=== PATIENT | female | born 2000 | race African-American/Black ===

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

== ENCOUNTER 2018-07-06 16:01 | Emergency (ER) | payer SELFPAY ==
[~2018-07-06] VITALS: Ht 170.2 cm; Wt 61.2 kg
[~2018-07-06 16:01] MED LIST: DIPH25CA58 PO; PRED50TA PO; SULF1TAB24 PO
[2018-07-06 16:30] VITALS: BP 133/67
[2018-07-06 16:54] LABS: BILIRUBIN,URINE NEGATIVE (NEG); CLARITY,URINE CLOUDY; COLOR,URINE YELLOW; NITRITE,URINE POSITIVE (NEG); PH,URINE 8.5; PROTEIN,URINE 30 mg/dL (NEG-TRACE)
[2018-07-06 17:00] LABS: BACTERIA,URINE MANY /HPF (0-FEW); SQUAMOUS EPITHELIAL CELL,UR MOD /LPF; WBC,URINE 20-40 /HPF (0-4)
[2018-07-06] MEDS ORDERED: CEPH500T PO (17:28)
--- NOTE | 2018-07-06 17:28 | PHYS DOC ---
Past Medical History Past Medical History: No Pertinent History Past Surgical History: No Surgical History Alcohol Use: None Drug Use: None Adult General Chief Complaint Chief Complaint: TEST [facility] HPI Patient is a 17 year old female with no significant medical history who presents to the ED today requesting a confirmation, patient states her last menstrual cycle was May 30, 2018. Patient denies any other symptoms. She states she did a test at home which was positive. Review of Systems Review of Systems Constitutional: Denies fever or chills [] Eyes: Denies change in visual acuity, redness, or eye pain [] HENT: Denies nasal congestion or sore throat [] Respiratory: Denies cough or shortness of breath [] Cardiovascular: No additional information not addressed in HPI [] GI: Request for test. Denies abdominal pain, nausea, vomiting, bloody stools or diarrhea [] : Denies dysuria or hematuria [] Musculoskeletal: Denies back pain or joint pain [] Integument: Denies rash or skin lesions [] Neurologic: Denies headache, focal weakness or sensory changes [] All other systems were reviewed and found to be within normal limits, except as documented in this note. Allergies Allergies Allergies Coded Allergies Type Severity Reaction Last Updated Verified No Known Drug Allergies 07/06/18 No Physical Exam Physical Exam Constitutional: Well developed, well nourished, no acute distress, non-toxic appearance. [] HENT: Normocephalic, atraumatic, bilateral external ears normal, oropharynx moist, no oral exudates, nose normal. [] Eyes: PERRLA, EOMI, conjunctiva normal, no discharge. [] Neck: Normal range of motion, no tenderness, supple, no stridor. [] Cardiovascular:Heart rate regular rhythm, no murmur [] Lungs & Thorax: Bilateral breath sounds clear to auscultation [] Abdomen: Bowel sounds normal, soft, no tenderness, no masses, no pulsatile masses. [] Skin: Warm, dry, no erythema, no rash. [] Back: No tenderness, no CVA tenderness. [] Extremities: No tenderness, no cyanosis, no clubbing, ROM intact, no edema. [] Neurologic: Alert and oriented X 3, normal motor function, normal sensory function, no focal deficits noted. [] Psychologic: Affect normal, judgement normal, mood normal. [] Current Patient Data Vital Signs Vital Signs Date Time Temp Pulse Resp B/P (MAP) Pulse Ox O2 Delivery O2 Flow Rate FiO2 07/06/18 16:30 97.7 90 16 133/67 (89) 97 Room Air 97.7 Lab Values Laboratory Tests Test 07/06/18 16:30 07/06/18 16:44 Urine Collection Type Unknown Urine Color Yellow Urine Clarity Cloudy Urine pH 8.5 Urine Specific [place] 1.025 Urine Protein 30 mg/dL (NEG-TRACE) Urine Glucose (UA) Negative mg/dL (NEG) Urine Ketones (Stick) Negative mg/dL (NEG) Urine Blood Negative (NEG) Urine Nitrite Positive (NEG) Urine Bilirubin Negative (NEG) Urine Urobilinogen Dipstick 1.0 mg/dL (0.2 mg/dL) Urine Leukocyte Esterase Moderate (NEG) Urine RBC 1-2 /HPF (0-2) Urine WBC 20-40 /HPF (0-4) Urine Squamous Epithelial Cells Mod /LPF Urine Bacteria Many /HPF (0-FEW) Urine Mucus Marked /LPF POC Urine HCG, Qualitative Hcg positive (Negative) EKG EKG [] Radiology/Procedures Radiology/Procedures [] Course & Med Decision Making Course & Med Decision Making Pertinent Labs and Imaging studies reviewed. (See chart for details) This is a 17-year-old female patient presenting to the ED today requesting a test confirmation. Positive urine hCG, urine noted for UTI. Discharged to cephalexin. Provided an OB for follow-up. Patient has no other complaints. Dragon Disclaimer Dragon Disclaimer This electronic medical record was generated, in whole or in part, using a voice recognition dictation system. Departure Departure Impression: Primary Impression: Additional Impression: Urinary tract infection Disposition: 01 HOME, SELF-CARE Condition: STABLE Referrals: DEBBIE LIM (PCP) DAMIAN TELLEZ Jr, MD follow up in 1-2 weeks Patient Instructions: ABCs of , - Urinary Tract Infection Additional Instructions: Your test was positive, congratulations!! You also have urinary tract infection, we'll put you on antibiotics, establish care with an RN INTEGRATED and follow-up for your . Scripts Cephalexin (CEPHALEXIN) 500 Mg Tablet 1 TAB PO BID, #14 TAB Prov: LENA REYES STAMP MACHINE SERVICER 07/06/18 Problem Qualifiers Primary Impression: Weeks of gestation: less than 8 weeks Qualified Codes: Z3A.01 - Less than 8 weeks gestation of Additional Impression: Urinary tract infection Urinary tract infection type: site unspecified Hematuria presence: without hematuria Qualified Codes: N39.0 - Urinary tract infection, site not specified LENA REYES APRN Jul 06, 2018 17:28
== END 2018-07-06 17:40 | disposition home or self-care (01) ==
LOC: ER 16:01
DX: O23.41 Unspecified infection of urinary tract in pregnancy, first trimester (principal); Z3A.01 Less than 8 weeks gestation of pregnancy
CPT/HCPCS: 81001; 81025; 87086; 87186; 99283

== ENCOUNTER 2018-10-13 15:30 | Observation (INO) | payer MEDICAID ==
[~2018-10-13 15:30] MED LIST changes: +CEPH500T PO
[2018-10-13 16:44] LABS: BILIRUBIN,URINE NEGATIVE (NEG); CLARITY,URINE CLEAR; COLOR,URINE YELLOW; NITRITE,URINE NEGATIVE (NEG); PROTEIN,URINE NEGATIVE (NEG-TRACE)
[2018-10-13 16:48] LABS: BARBITURATES NEG (NEG); BENZODIAZEPINES NEG (NEG); CANNABINOIDS NEG (NEG); COCAINE NEG (NEG); METHADONE NEG (NEG); OPIATES NEG (NEG); PHENCYCLIDINE NEG (NEG)
[2018-10-13 16:49] LABS: AMPHETAMINE/METHAMPHETAMINE NEG (NEG)
[2018-10-13 16:51] LABS: SQUAMOUS EPITHELIAL CELL,UR MOD /LPF
[2018-10-13 16:53] LABS: BACTERIA,URINE FEW /HPF (0-FEW); RBC,URINE 0 /HPF (0-2); TRICHOMONAS,URINE PRESENT
[2018-10-13] MEDS ORDERED: metroNIDAZOLE 500 MG TABLET PO ONE (18:00)
--- NOTE | 2018-10-14 09:51 | RAD ---
Exam performed: OB sonogram second trimester. Indication: Bleeding and abdominal discomfort, evaluation of placental position. Date of Service: 10/13/2018 Comparison: None available. Technique: Transabdominal . Findings: Single intrauterine fetus is seen . The maturity is as follows. BPD 4.9 cm 20 weeks and 6 days Head circumference 17.9 cm 20 weeks and 2 days Abdominal circumference 14.5cm 19 weeks and 6 days Femur length 3.1 cm 19 weeks and 3 days HC to AC ratio is 1.23 . Estimated weight is 312+/-46 grams. The composite maturity is 20 weeks and 1 days with a sonographic EDC of 03/01/2019 There is adequate amniotic fluid volume . The cervical length measures 4.9cm. heart rate measures 145 beats per minute. Normal movement and cardiac activity seen. Anatomical survey is not performed as the patient is scheduled for a anatomical survey in one week. Placenta is posterior, no previa Impression: Single live intrauterine fetus of maturity 20 weeks and 1 days . Electronically signed by: Vianey Bills MD (10/14/2018 9:48 AM) [facility]
== END 2018-10-13 19:47 | disposition home or self-care (01) ==
LOC: 3 SO LND 15:30
PROVIDERS: ADMIT Obstetrics & Gynecology; ATTEND Obstetrics & Gynecology
DX: O26.852 Spotting complicating pregnancy, second trimester (principal); Z3A.20 20 weeks gestation of pregnancy
CPT/HCPCS: 76805; 80307; 81001; 87086; G0378; G0379

== ENCOUNTER 2020-05-16 17:26 | Emergency (ER) | payer MEDICAID ==
[~2020-05-16] VITALS: Ht 170.2 cm; Wt 65.0 kg
--- NOTE | 2020-05-16 18:40 | ED.ADGEN ---
Past Medical History Past Medical History: No Pertinent History Past Surgical History: No Surgical History Smoking Status: Never Smoker Alcohol Use: None Drug Use: None General Adult EDM: Chief Complaint: ABDOMINAL PAIN HPI: HPI: Patient is a 19 year old female coming in for abdominal pain. Patient states that she was seen at [facility] about a week ago and discharged. She has an IUD was placed 1 year ago after she gave to her first child. Patient states she had the strings checked a few months after and was in normal position.. Said since that time she has been having regular menstrual cycles. Last month in April she bled for the entire month and just stopped a couple of days ago. She had that time she was having severe low abdominal cramping. Now about the past few days that she has been having right upper quadrant abdominal pain that is worse with movement or taking a deep breath. Says the pain is constant does not go away. Pain does not change with eating. She denies any vaginal discharge, any pain with anything the vagina, any vaginal bleeding currently. Says she has had occasional cramping. Denies any nausea, vomiting, diarrhea, constipation, fevers. Says sometimes when she takes deep breath the pain radiates to her right shoulder. No history of any other abdominal surgeries. Is sexually active with a female. Review of Systems: Review of Systems: All other systems within normal limits except for as noted in the HPI Current Medications: Current Medications Medications (Trade) Dose Ordered Sig/Priti Start Time Stop Time Status Last Admin Dose Admin Ceftriaxone Sodium (Rocephin Im) 500 mg 1X ONCE 05/16/20 22:15 05/16/20 22:16 DC 05/16/20 22:44 500 MG Doxycycline Hyclate (Vibra-Tab) 100 mg 1X ONCE 05/16/20 22:15 05/16/20 22:16 DC 05/16/20 22:44 100 MG Info (CONTRAST GIVEN -- Rx MONITORING) 1 each PRN DAILY PRN 05/16/20 20:15 05/16/20 23:26 DC Iohexol (Omnipaque 300 Mg/ml) 75 ml 1X ONCE 05/16/20 20:30 05/16/20 20:31 DC 05/16/20 20:19 75 ML Ketorolac Tromethamine (Toradol 15mg Vial) 15 mg 1X ONCE 05/16/20 18:45 05/16/20 18:46 DC 05/16/20 19:13 15 MG Metronidazole (Flagyl) 2,000 mg 1X ONCE 05/16/20 22:15 05/16/20 22:16 DC 05/16/20 22:45 2,000 MG Ondansetron HCl (Zofran) 4 mg 1X ONCE 05/16/20 22:15 05/16/20 22:16 DC 05/16/20 22:44 4 MG Allergies: Allergies: Allergies Coded Allergies Type Severity Reaction Last Updated Verified No Known Drug Allergies 07/06/18 No Physical Exam: PE: Constitutional: Well developed, well nourished, no acute distress, non-toxic appearance. [] HENT: Normocephalic, atraumatic, bilateral external ears normal, nose normal. [] Eyes: PERRLA, conjunctiva normal, no discharge. [] Neck: No rigidity, supple, no stridor. [] Cardiovascular: Regular rate and rhythm, brisk cap refill [] Lungs & Thorax: Non labored symmetric respirations, no tachypnea or respiratory distress [] Abdomen: Soft, nondistended, tenderness on right upper quadrant, no guarding or rebound. Right-sided tenderness on palpation of the left abdomen. : Normal external vagina, cervix normal in appearance without erythema, no strings visible at the os, no solid portion of IUD visible. Moderate amount of foamy green tinted discharge. +CMT Skin: Warm, dry, no erythema, no rash. [] Back: Unremarkable Extremities: No deformities, range of motion grossly intact, no lower extremity edema [] Neurologic: Alert and oriented X 3, no focal deficits noted. [] Psychologic: Affect normal, judgement normal, mood normal. [] Current Patient Data: Labs: Laboratory Tests Test 05/16/20 17:55 05/16/20 19:05 Urine Collection Type Void Urine Color Yellow Urine Clarity Cloudy Urine pH 6.5 (<5.0-8.0) Urine Specific [place] 1.010 (1.000-1.030) Urine Protein Negative mg/dL (NEG-TRACE) Urine Glucose (UA) Negative mg/dL (NEG) Urine Ketones (Stick) Negative mg/dL (NEG) Urine Blood Negative (NEG) Urine Nitrite Negative (NEG) Urine Bilirubin Negative (NEG) Urine Urobilinogen Dipstick 1.0 mg/dL (0.2 mg/dL) Urine Leukocyte Esterase Moderate (NEG) Urine RBC 0 /HPF (0-2) Urine WBC 11-20 /HPF (0-4) Urine Squamous Epithelial Cells Few /LPF Urine Bacteria Few /HPF (0-FEW) Urine Mucus Slight /LPF Urine Trichomonas Present White Blood Count 14.6 x10^3/uL (4.0-11.0) H Red Blood Count 4.33 x10^6/uL (3.50-5.40) Hemoglobin 12.0 g/dL (12.0-15.5) Hematocrit 37.4 % (36.0-47.0) Mean Corpuscular Volume 87 fL (79-100) Mean Corpuscular Hemoglobin 28 pg (25-35) Mean Corpuscular Hemoglobin Concent 32 g/dL (31-37) Red Cell Distribution Width 11.7 % (11.5-14.5) Platelet Count 374 x10^3/uL (140-400) Neutrophils (%) (Auto) 75 % (31-73) H Lymphocytes (%) (Auto) 14 % (24-48) L Monocytes (%) (Auto) 8 % (0-9) Eosinophils (%) (Auto) 2 % (0-3) Basophils (%) (Auto) 1 % (0-3) Neutrophils # (Auto) 10.9 x10^3/uL (1.8-7.7) H Lymphocytes # (Auto) 2.1 x10^3/uL (1.0-4.8) Monocytes # (Auto) 1.1 x10^3/uL (0.0-1.1) Eosinophils # (Auto) 0.4 x10^3/uL (0.0-0.7) Basophils # (Auto) 0.1 x10^3/uL (0.0-0.2) Sodium Level 136 mmol/L (136-145) Potassium Level 4.5 mmol/L (3.5-5.1) Chloride Level 101 mmol/L (98-107) Carbon Dioxide Level 30 mmol/L (21-32) Anion Gap 5 (6-14) L Blood Urea Nitrogen 9 mg/dL (7-20) Creatinine 0.8 mg/dL (0.6-1.0) Estimated GFR (Cockcroft-Gault) 109.6 BUN/Creatinine Ratio 11 (6-20) Glucose Level 83 mg/dL (70-99) Calcium Level 9.2 mg/dL (8.5-10.1) Total Bilirubin 0.8 mg/dL (0.2-1.0) Aspartate Amino Transferase (AST) 47 U/L (15-37) H Alanine Aminotransferase (ALT) 23 U/L (14-59) Alkaline Phosphatase 96 U/L (46-116) Total Protein 8.7 g/dL (6.4-8.2) H Albumin 3.8 g/dL (3.4-5.0) Albumin/Globulin Ratio 0.8 (1.0-1.7) L Lipase 80 U/L (73-393) Laboratory Tests 05/16/20 19:05 Laboratory Tests 05/16/20 19:05 Microbiology 05/16/20 Wet Prep - Final, Complete Vital Signs: Vital Signs Date Time Temp Pulse Resp B/P (MAP) Pulse Ox O2 Delivery O2 Flow Rate FiO2 05/16/20 23:15 78 16 107/69 (82) 97 Room Air 05/16/20 18:40 98.2 98.2 EKG: EKG: [] Heart Score: Risk Factors: Risk Factors: DM, Current or recent (<one month) smoker, HTN, HLP, family history of CAD, obesity. Risk Scores: Score 0 - 3: 2.5% MACE over next 6 weeks - Discharge Home Score 4 - 6: 20.3% MACE over next 6 weeks - Admit for Clinical Observation Score 7 - 10: 72.7% MACE over next 6 weeks - Early Invasive Strategies Radiology/Procedures: Radiology/Procedures: Exam: CT of abdomen and pelvis with contrast INDICATION: Right upper quadrant abdominal pain TECHNIQUE: Sequential axial images through the abdomen and pelvis obtained following the administration of 75 mL of Isovue-370 IV contrast. Sagittal and coronal reformatted images were reconstructed from the axial data and reviewed. Comparisons: None FINDINGS: Heart size is normal. No pericardial Effusion. Visualized lung bases are clear. No pleural effusion. Liver, spleen, pancreas, gallbladder and adrenals are unremarkable. No perinephric inflammation or hydronephrosis. No renal or ureteral calculi are identified. Bladder is distended and appears thin-walled. Uterus is not enlarged. There is IUD noted within the uterus, somewhat low in position. No abnormal adnexal mass. Large and small bowel are unremarkable. Appendix is normal. No free intra- abdominal air or fluid. Abdominal aorta has a normal course and caliber. Abdominal vasculature is patent. No enlarged abdominal lymph nodes are identified. No suspicious osseous lesions or acute fractures. IMPRESSION: 1. No acute process identified within the abdomen or pelvis. 2. IUD is somewhat low position in the uterus. Recommend correlation with ultrasound. [] Course & Med Decision Making: Course & Med Decision Making Pertinent Labs and Imaging studies reviewed. (See chart for details) Discussed with VENTILATION MECHANIC, Dr. Smith. Agrees that since she is stable we can treat outpatient with a dose of ceftriaxone and 2 mg of Flagyl here, doxycycline for 2 weeks. [] Dragon Disclaimer: Jon Disclaimer: This electronic medical record was generated, in whole or in part, using a voice recognition dictation system. Departure Departure Impression: Primary Impression: PID (acute pelvic inflammatory disease) Disposition: 01 DC HOME SELF CARE/HOMELESS Condition: STABLE Referrals: NO PCP (PCP) Patient Instructions: Abdominal Pain Additional Instructions: Follow-up with your VENTILATION MECHANIC Scripts Doxycycline Hyclate (DOXYCYCLINE HYCLATE) 100 Mg Capsule 1 CAP PO BID for antibiotic for 14 Days, #28 CAP Prov: JIMBO CARR MD 05/16/20 Tramadol Hcl (TRAMADOL HCL) 50 Mg Tablet 50 MG PO Q6HRS PRN for PAIN for 3 Days, #12 TAB Prov: JIMBO CARR MD 05/16/20 Ketorolac Tromethamine (KETOROLAC TROMETHAMINE) 10 Mg Tablet 1 TAB PO TID PRN for MODERATE PAIN 4-6 for 5 Days, #15 TAB Prov: JIMBO CARR MD 05/16/20 JIMBO CARR MD May 16, 2020 18:40
[2020-05-16 18:43] LABS: BILIRUBIN,URINE NEGATIVE (NEG); CLARITY,URINE CLOUDY; COLOR,URINE YELLOW; NITRITE,URINE NEGATIVE (NEG); PH,URINE 6.5 (<5.0-8.0); PROTEIN,URINE NEGATIVE (NEG-TRACE)
[2020-05-16] MEDS ORDERED: KETOROLAC 15 MG/ML VIAL. IVP ONE (18:45)
[2020-05-16 18:51] LABS: BACTERIA,URINE FEW /HPF (0-FEW)
[2020-05-16 18:52] LABS: RBC,URINE 0 /HPF (0-2); TRICHOMONAS,URINE PRESENT
[2020-05-16 19:22] LABS: BASO # 0.1 x10^3/uL (0.0-0.2); BASO % 1 % (0-3); EOS # 0.4 x10^3/uL (0.0-0.7); EOS % 2 % (0-3); HEMATOCRIT 37.4 % (36.0-47.0); LYMPH # 2.1 x10^3/uL (1.0-4.8); LYMPH % 14 % (24-48); MEAN CORPUSCULAR HEMOGLOBIN 28 pg (25-35); MEAN CORPUSCULAR HGB CONC 32 g/dL (31-37); MEAN CORPUSCULAR VOLUME 87 fL (79-100); MONO # 1.1 x10^3/uL (0.0-1.1); MONO % 8 % (0-9); NEUT # 10.9 x10^3/uL (1.8-7.7); NEUT % 75 % (31-73); PLATELET COUNT 374 x10^3/uL (140-400); RED BLOOD COUNT 4.33 x10^6/uL (3.50-5.40); RED CELL DISTRIBUTION WIDTH 11.7 % (11.5-14.5); WHITE BLOOD COUNT 14.6 x10^3/uL (4.0-11.0)
[2020-05-16 19:40] LABS: CALCIUM 9.2 mg/dL (8.5-10.1); CREATININE 0.8 mg/dL (0.6-1.0); GFR 109.6; POTASSIUM 4.5 mmol/L (3.5-5.1)
[2020-05-16 19:46] LABS: ALBUMIN 3.8 g/dL (3.4-5.0); ALBUMIN/GLOBULIN RATIO 0.8 (1.0-1.7); TOTAL BILIRUBIN 0.8 mg/dL (0.2-1.0); TOTAL PROTEIN 8.7 g/dL (6.4-8.2)
[2020-05-16] MEDS ORDERED: CONTRAST GIVEN. MC PRN (20:15)
[2020-05-16] MEDS ORDERED: IOHEXOL 300 MG/ML 100ML VIAL. IV ONE (20:30)
--- NOTE | 2020-05-16 20:34 | RAD ---
Exam: CT of abdomen and pelvis with contrast INDICATION: Right upper quadrant abdominal pain TECHNIQUE: Sequential axial images through the abdomen and pelvis obtained following the administrati on of 75 mL of Isovue-370 IV contrast. Sagittal and coronal reformatted images were reconstructed fro m the axial data and reviewed. Comparisons: None FINDINGS: Heart size is normal. No pericardial Effusion. Visualized lung bases are clear. No pleural effusion. Liver, spleen, pancreas, gallbladder and adrenals are unremarkable. No perinephric inflammation or hydronephrosis. No renal or ureteral calculi are identified. Bladder is distended and appears thin-walled. Uterus is not enlarged. There is IUD noted within the u terus, somewhat low in position. No abnormal adnexal mass. Large and small bowel are unremarkable. Appendix is normal. No free intra-abdominal air or fluid. Abdominal aorta has a normal course and caliber. Abdominal vasculature is patent. No enlarged abdominal lymph nodes are identified. No suspicious osseous lesions or acute fractures. IMPRESSION: 1. No acute process identified within the abdomen or pelvis. 2. IUD is somewhat low position in the uterus. Recommend correlation with ultrasound. Exposure: One or more of the following in the visualized dose reduction techniques were utilized for this examination: 1. Automated exposure control 2. Adjustment of the MA and/or KV according to patient size 3. Use of iterative of reconstructive technique Electronically signed by: Karel Barkley MD (05/16/2020 8:32 PM) [facility]
[2020-05-16] MEDS ORDERED: cefTRIAXone IM 500 MG VIAL. IM ONE (22:15)
[2020-05-16] MEDS ORDERED: DOXYCYCLINE HYCLATE 100 MG TABLET PO ONE (22:15)
[2020-05-16] MEDS ORDERED: ONDANSETRON PF 4 MG/2 ML VIAL. IVP ONE (22:15)
[2020-05-16] MEDS ORDERED: metroNIDAZOLE 500 MG TABLET PO ONE (22:15)
[2020-05-16] MEDS ORDERED: TRAM50TA PO (22:17)
[2020-05-16] MEDS ORDERED: KETO10TA PO (22:17)
[2020-05-16] MEDS ORDERED: DOXY100C2 PO (22:17)
[2020-05-16 23:15] VITALS: BP 107/69
[2020-05-18 18:12] LABS: GC PROBE Negative (Negative)
== END 2020-05-16 23:15 | disposition home or self-care (01) ==
LOC: ER 17:26
DX: N73.0 Acute parametritis and pelvic cellulitis (principal); R10.11 Right upper quadrant pain
CPT/HCPCS: 36415; 74177; 80053; 81001; 83690; 85025; 87086; 87491; 87591; 96372; 96374; 96375; 99285; J0696; J1885; J2405; Q0111; Q9967